=== PATIENT | female | born 1955 | race American Indian/Alaskan Native ===

== ENCOUNTER 2017-03-22 09:51 | Outpatient (CLI) | payer BC ==
--- NOTE | 2017-03-22 10:23 | Mammography Report ---
Bilateral mammogram: Compared to 03/19/16. CAD study utilized. Findings: Heterogeneous breast parenchyma bilaterally. Benign scattered calcifications. Benign axillary nodes. No microcalcification or mass. Impression: Benign findings. Annual follow mammogram recommended. BI-RADS CATEGORY: 2 = Benign ACR BI-RADS MAMMOGRAPHIC CODES: 0 = Needs additional imaging evaluation; 1 = Negative; 2 = Benign; 3 = Probably benign; 4 = Suspicious; 5 = Malignant; 6 = Known biopsy-proven malignancy COMMENT: 1. Dense breast tissue, i.e., adenosis, fibrocystic changes, etc., may obscure an underlying neoplasm. 2. Approximately 10% of cancers are not detected with mammography. 3. A negative mammography report should not delay biopsy if a clinically suspicious mass is present. COMMENT: Patient follow-up letters are generated in [employer].
== END 2017-03-22 09:52 | disposition home or self-care (01) ==
LOC: SPVWC 09:51
PROVIDERS: ATTEND Surgery
DX: Z12.31 Encounter for screening mammogram for malignant neoplasm of breast (principal)
CPT/HCPCS: 77067; G0202

== ENCOUNTER 2018-03-24 10:59 | Outpatient (CLI) | payer BC ==
--- NOTE | 2018-03-27 11:05 | Mammography Report ---
BILATERAL DIGITAL SCREENING MAMMOGRAM with CAD : 03/24/18 10:59:00 CLINICAL: Routine screening. COMPARISON:03/22/17 FINDINGS: The breasts are heterogeneously dense, which may obscure small masses. No mass, architectural distortion or suspicious calcifications. IMPRESSION: No mammographic evidence of malignancy. BI-RADS CATEGORY: 2 -- Benign RECOMMENDATION: Routine mammographic screening in one year. COMMENT: Patient follow-up letters are generated by our [employer] application.
== END 2018-03-24 11:00 | disposition home or self-care (01) ==
LOC: SPVWC 10:59
PROVIDERS: ATTEND Surgery
DX: Z12.31 Encounter for screening mammogram for malignant neoplasm of breast (principal)
CPT/HCPCS: 77067

== ENCOUNTER 2019-01-30 12:22 | Outpatient (CLI) | payer BC ==
--- NOTE | 2019-01-30 13:33 | Ultrasound Report ---
BILATERAL DIGITAL DIAGNOSTIC MAMMOGRAM with CAD and LEFT BREAST ULTRASOUND: 01/30/19 CLINICAL: Left breast pain and tenderness. COMPARISON:03/24/18 FINDINGS: The breasts are heterogeneously dense, which may obscure small masses.No mass, architectural distortion or suspicious calcifications. Ultrasound of the left breast (including all four quadrants and the retroareolar area) was performed. A benign cyst at 4 o'clock 7 cm from the nipple measures 6 x 2 x 6 mm. No solid mass or shadowing. Mild retroareolar duct ectasia. IMPRESSION: Negative mammogram. Negative left breast ultrasound except for mild benign retroareolar duct ectasia and a benign cyst at 4 o'clock. No explanation for left breast pain. BI-RADS CATEGORY: 2 -- Benign RECOMMENDATION: Clinical followup and routine mammographic screening in one year. COMMENT: Patient follow-up letters are generated by our [employer] application.
== END 2019-01-30 12:23 | disposition home or self-care (01) ==
LOC: SPVWC 12:22
PROVIDERS: ATTEND Surgery
DX: N64.4 Mastodynia (principal)
CPT/HCPCS: 77066

== ENCOUNTER 2020-02-05 12:55 | Outpatient (CLI) | payer BC ==
--- NOTE | 2020-02-05 13:31 | Mammography Report ---
DIGITAL SCREENING MAMMOGRAM WITH CAD, 02/05/2020 INDICATION: Routine screening mammography. TECHNIQUE: Digital bilateral 2D mammography was obtained in the craniocaudal and mediolateral obliq ue projections. This examination was interpreted with the benefit of Computer-Aided Detection analysi s. COMPARISON: Prior mammograms 01/30/2019 and 03/24/2018 FINDINGS: Breast Density: The breasts are heterogeneously dense, which may obscure small masses. There is no evidence of dominant mass, suspicious calcifications or architectural distortion in eithe r breast. There has been no significant change compared with the prior examinations. IMPRESSION: Follow up recommendation: Routine yearly BI-RADS Category 1: Negative. A "normal" or negative report should not discourage follow up or biopsy of a clinically significant f inding. A written summary of these findings will be mailed to the patient. The patient will be entered into a mammography reporting system which will generate a reminder letter for the patient's next appointmen t at the appropriate interval. The [employer] recommends yearly mammograms starting at age 40 and continuing as l radha as a woman is in good health. Breast MRI is recommended for women with an approximate 20-25% or greater lifetime risk of breast cancer, including women with a strong family history of breast or ova elda cancer or who have been treated for Hodgkin's disease. Signer Name: Juana Brandon MD Signed: 02/05/2020 1:26 PM Workstation Name: [id number]
== END 2020-02-05 12:56 | disposition home or self-care (01) ==
LOC: SPVWC 12:55
PROVIDERS: ATTEND Surgery
DX: Z12.31 Encounter for screening mammogram for malignant neoplasm of breast (principal)
CPT/HCPCS: 77067

== ENCOUNTER 2021-04-06 11:18 | Outpatient (CLI) | payer BC ==
--- NOTE | 2021-04-07 08:18 | Mammography Report ---
DIGITAL SCREENING MAMMOGRAM WITH CAD, 04/06/2021 CLINICAL INFORMATION / INDICATION: Routine screening mammography. TECHNIQUE: Digital bilateral 2D mammography was obtained in the craniocaudal and mediolateral obliqu e projections. This examination was interpreted with the benefit of Computer-Aided Detection analysis . COMPARISON: 02/05/2020, 01/30/2019, 03/24/2018 FINDINGS: Breast Density: The breasts are heterogeneously dense, which may obscure small masses. No dominant mass, suspicious calcifications, or architectural distortion in either breast. IMPRESSION: No mammographic evidence of malignancy. Follow up recommendation: Routine yearly BI-RADS Category 1: Negative. A "normal" or negative report should not discourage follow up or biopsy of a clinically significant f inding. A written summary of these findings will be mailed to the patient. The patient will be entered into a mammography reporting system which will generate a reminder letter for the patient's next appointmen t at the appropriate interval. The [employer] recommends yearly mammograms starting at age 40 and continuing as l rahda as a woman is in good health. Breast MRI is recommended for women with an approximate 20-25% or greater lifetime risk of breast cancer, including women with a strong family history of breast or ova elda cancer or who have been treated for Hodgkin's disease. Signer Name: Javid Cho MD Signed: 04/07/2021 8:14 AM Workstation Name: [id number]
== END 2021-04-06 11:19 | disposition home or self-care (01) ==
LOC: SPVWC 11:18
PROVIDERS: ATTEND Surgery
DX: Z12.31 Encounter for screening mammogram for malignant neoplasm of breast (principal)
CPT/HCPCS: 77067

== ENCOUNTER 2021-08-12 10:18 | Outpatient (CLI) | payer BC ==
--- NOTE | 2021-08-12 11:15 | Cat Scan Report ---
CT CHEST WITHOUT CONTRAST INDICATION / CLINICAL INFORMATION: CHEST PAIN/SOB X2 MONTHS . TECHNIQUE: Axial CT images were obtained through the chest without contrast. All CT scans at this [facility] ation are performed using CT dose reduction for ALARA by means of automated exposure control. COMPARISON: 09/28/2016 FINDINGS: HEART: Mild left atrial enlargement, measuring up to 4.2 cm. CORONARY ARTERY CALCIFICATION: Mild. THORACIC AORTA: No significant abnormality. MEDIASTINUM / MARGO: No significant abnormality. PLEURA: No pleural effusion. No pneumothorax. LUNGS: Mild increased densities within the bilateral lung bases. No focal consolidation, pulmonary ma ss or pulmonary nodule. ADDITIONAL FINDINGS: None. UPPER ABDOMEN: No significant abnormality. SKELETAL SYSTEM: No significant abnormality. IMPRESSION: 1. Mild left atrial enlargement measuring up to 4.2 cm. 2. Increased densities within the bilateral lung bases suggesting atelectatic change. This may also r epresent sequela of small airways disease. Signer Name: Linwood Arambula DO Signed: 08/12/2021 11:11 AM Workstation Name: [id number]
--- NOTE | 2021-08-12 11:36 | Mammography Report ---
DIGITAL DIAGNOSTIC MAMMOGRAM CONVENTIONAL, 08/12/2021 CLINICAL INFORMATION / INDICATION: BILATERAL BREAST PAIN TECHNIQUE: Digital bilateral mammographic imaging was performed. COMPARISON: Prior mammograms 04/06/2021, 02/05/2020, and 01/30/2019 FINDINGS: Breast Density: The breasts are heterogeneously dense, which may obscure small masses. No dominant mass, suspicious calcifications or architectural distortion in either breast. There has been no significant change compared with the prior examinations. There is no mammographic a bnormality identified to account for bilateral breast pain. IMPRESSION: 1. There is no mammographic abnormality identified to account for bilateral breast pain, therefore cl inical correlation is recommended. Follow up recommendation: Routine yearly BI-RADS Category 1: Negative. A "normal" or negative report should not discourage follow up or biopsy of a clinically significant f inding. A written summary of these findings will be mailed to the patient. The patient will be entered into a mammography reporting system which will generate a reminder letter for the patient's next appointmen t at the appropriate interval. According to the [employer], yearly mammograms are recommended starting at age 40 and continuing as long as a woman is in good health. Breast MRI is recommended for women with an tee roximately 20-25% or greater lifetime risk of breast cancer, including women with a strong family his tory of breast or ovarian cancer and women who have been treated for Hodgkin's disease. Signer Name: Juana Brandon MD Signed: 08/12/2021 11:32 AM Workstation Name: [email or web address]
== END 2021-08-12 10:19 | disposition home or self-care (01) ==
LOC: SPVIMAG 10:18
PROVIDERS: ATTEND Family Medicine Adult Medicine
DX: I51.7 Cardiomegaly (principal); R07.9 Chest pain, unspecified; R06.02 Shortness of breath; N64.4 Mastodynia; R92.8 Other abnormal and inconclusive findings on diagnostic imaging of breast
CPT/HCPCS: 71250; 77066